=== PATIENT | male | born 1950 | race Caucasian/White ===

== ENCOUNTER 2019-03-25 17:29 | Inpatient (IN) | payer MEDICARE, MEDICAID ==
[~2019-03-25] VITALS: Ht 180.3 cm; Wt 61.4 kg
--- NOTE | 2019-03-25 17:40 | NUR ---
PT BIB EMS FOR PRODUCTIVE COUGH, WEAKNESS, FEVER FROM HOME. PT IS A&OX4, SLOW TO ANSWER QUESTIONS, FORGETFUL. HX OF TBI. VS STABLE. PT HAS PRODUCTIVE COUGH W YELLOW SPUTUM. WAITING FOR MD ORDERS. VS STABLE. NO SYMPTOMS OF DISTRESS
[2019-03-25] MEDS ORDERED: SODIUM CHLORIDE 0.9% 1,000ML IVBOLUS ONE (18:00)
[2019-03-25] MEDS ORDERED: SODIUM CHLORIDE FLUSH 10ML SYR IVF ONE (18:00)
--- NOTE | 2019-03-25 18:04 | NUR ---
CARDIAC MONITORED APPLIED. BLOOD CULUTRES IN PROCESS
[2019-03-25] MEDS ORDERED: ACETAMINOPHEN 650 MG SUPP ONE (18:07)
[2019-03-25] MEDS ORDERED: PIPERACILLIN/TAZO/PMX 3.375GM 50 ML ONE (18:10)
[2019-03-25 18:19] LABS: BASOPHILS % (AUTO) 0 % (0-1); EOSINOPHILS # (AUTO) 0.08 x10^3/uL (0-0.4); EOSINOPHILS % (AUTO) 1 % (1-7); LYMPHOCYTES # (AUTO) 0.64 x10^3/uL (1-3.4); LYMPHOCYTES % (AUTO) 7 % (22-44); MD NO; MEAN CORPUSCULAR HEMOGLOBIN 32.4 pg (27.5-34.5); MEAN CORPUSCULAR HGB CONC 33.2 g/dL (33.2-36.2); MEAN CORPUSCULAR VOLUME 97.7 fL (81-97); MEAN PLATELET VOLUME 8.9 fL (7.4-10.4); MONOCYTES # (AUTO) 0.75 x10^3/uL (0.2-0.8); MONOCYTES % (AUTO) 9 % (2-9); NEUTROPHILS # (AUTO) 7.16 x10^3/uL (1.8-6.8); NEUTROPHILS % (AUTO) 83 % (42-75); PLATELET COUNT 196 x10^3/uL (130-400); RED BLOOD COUNT 3.51 x10^6/uL (4.38-5.82); RED CELL DISTRIBUTION WIDTH 12.5 % (9.4-14.8)
[2019-03-25 18:27] LABS: INTERNATIONAL NORMALIZED RATIO 1.31 (0.93-1.1); PROTHROMBIN TIME 13.6 Seconds (9.6-11.5)
[2019-03-25 18:29] LABS: ALANINE AMINOTRANSFERASE 17 U/L (12-78); ALBUMIN 2.7 g/dL (3.4-5.0); ANION GAP 6 mmol/L (5-15); CHLORIDE 104 mmol/L (98-107); CREATININE 0.79 mg/dL (0.7-1.3)
[2019-03-25] MEDS ORDERED: ATENOLOL PO (18:29)
[2019-03-25] MEDS ORDERED: LOPERAMIDE PO (18:29)
[2019-03-25] MEDS ORDERED: GAPAPENTIN PO (18:29)
[2019-03-25] MEDS ORDERED: ALPRAZOLAM (18:29)
[2019-03-25] MEDS ORDERED: ZOLPIDEM PO (18:29)
[2019-03-25] MEDS ORDERED: PIPERACILLIN/TAZO/PMX 3.375GM 50 ML IV ONE (18:30)
[2019-03-25] MEDS ORDERED: ACETAMINOPHEN 650 MG SUPP PR ONE (18:30)
[2019-03-25 18:33] LABS: ALKALINE PHOSPHATASE 76 U/L (45-117); TOTAL PROTEIN 6.8 g/dL (6.4-8.2); TROPONIN I < 0.015 ng/mL (0.000-0.045)
--- NOTE | 2019-03-25 18:44 | NUR ---
EDUCATED PT FOR UA. RN ASSISTED W URINAL, PT UNABLE TO URINATE
--- NOTE | 2019-03-25 19:07 | NUR ---
PT WILLBE ADMITTED
--- NOTE | 2019-03-25 19:17 | NUR ---
DAUGHTER CALLED AND UPDATED [facility] [phone]
--- NOTE | 2019-03-25 19:23 | NUR ---
ABX IV WAS DONE VSS STABLE PT IS AAOX3 ABLE TO ANSWER FROM STAFFS
[2019-03-25] MEDS ORDERED: ACETAMINOPHEN 325 MG TABLET PO PRN (19:30)
[2019-03-25] MEDS ORDERED: CEFTRIAXONE PMX 2GM/50ML 50 ML IV SCH (19:30)
[2019-03-25 19:36] LABS: MICROSCOPIC NOT IND
[2019-03-25 19:39] LABS: CULTURE INDICATED? NO
--- NOTE | 2019-03-25 19:46 | NUR ---
GIVEN REPORT TO DIXIE GAMEZ PT WILL BE UP VSS STABLE
[2019-03-25 19:55] LABS: PREALBUMIN 13.8 mg/dL (20.0-40.0)
[2019-03-25 20:12] VITALS: BP 126/69
[2019-03-25] MEDS: HEPARIN 5,000 UNITS/ML, 1ML SQ SCH (21:30)
[2019-03-25] MEDS ORDERED: CARI3CAP PO (21:47)
[2019-03-25] MEDS ORDERED: FERR-51 PO (21:54)
[2019-03-25] MEDS ORDERED: Multivitamin PO (21:54)
[2019-03-25] MEDS ORDERED: HYDR-2443 PO (21:54)
[2019-03-25] MEDS ORDERED: ESCI20TA PO (21:54)
[2019-03-26 00:42] VITALS: BP 119/62
[2019-03-26 05:54] LABS: ALBUMIN 2.4 g/dL (3.4-5.0); ANION GAP 7 mmol/L (5-15); CALCIUM 8.1 mg/dL (8.5-10.1); CHLORIDE 107 mmol/L (98-107)
[2019-03-26 05:59] LABS: ALANINE AMINOTRANSFERASE 26 U/L (12-78); ALKALINE PHOSPHATASE 72 U/L (45-117); BILIRUBIN,TOTAL 0.7 mg/dL (0.2-1.0); CREATININE 0.81 mg/dL (0.7-1.3); TOTAL PROTEIN 5.8 g/dL (6.4-8.2)
[2019-03-26 06:30] VITALS: BP 94/60
[2019-03-26 06:43] LABS: MEAN CORPUSCULAR HEMOGLOBIN 32.8 pg (27.5-34.5); MEAN CORPUSCULAR HGB CONC 33.5 g/dL (33.2-36.2); MEAN CORPUSCULAR VOLUME 97.7 fL (81-97); MEAN PLATELET VOLUME 8.6 fL (7.4-10.4); PLATELET COUNT 173 x10^3/uL (130-400); RED CELL DISTRIBUTION WIDTH 12.6 % (9.4-14.8)
[2019-03-26 07:01] LABS: MD YES
[2019-03-26 07:15] LABS: BAND#(MANUAL) 0.51 x10^3/uL; BANDS%(MANUAL) 32 % (0-7); LYMPH#(MANUAL) 0.32 x10^3/uL (1-3.4); LYMPHS% (MANUAL) 20 % (22-44); MONOS#(MANUAL) 0.21 x10^3/uL (0.3-2.7); MONOS% (MANUAL) 13 % (2-9); SEG#(MANUAL) 0.56 x10^3/uL (1.8-6.8); SEGS% (MANUAL) 35 % (42-75)
[2019-03-26 07:16] LABS: <PLATELET ESTIMATE> ADEQUATE; <PLT MORPHOLOGY> NORMAL PLT MORPH; <RBC MORPHOLOGY> NORMAL; PMNS WITH VACUOLES 1+
[2019-03-26] MEDS ORDERED: AZITHROMYCIN 500 MG TABLET PO SCH (09:00)
[2019-03-26] MEDS: HEPARIN 5,000 UNITS/ML, 1ML SQ SCH ×2 (09:50→21:40)
[2019-03-26 10:03] VITALS: BP 109/69
[2019-03-26 10:14] VITALS: BP 97/61
[2019-03-26] MEDS: ALBUTEROL SULFATE 2.5 MG/3 ML NPPB SCH ×5 (10:30→22:59)
[2019-03-26] MEDS ORDERED: SODIUM CHLORIDE 0.9%, 250ML IVBOLUS ONE (11:00)
[2019-03-26] MEDS ORDERED: VANCOMYCIN PMX 1GM/200ML 200 ML IV ONE (11:00)
[2019-03-26] MEDS: SODIUM CHLORIDE 0.9% 1,000 ML IV SCH (11:00)
[2019-03-26] MEDS ORDERED: VANCOMYCIN PER PHARMACY MC PRN (11:00)
[2019-03-26] MEDS ORDERED: PHARMACOKINETIC MONITORING MC PRN (11:00)
[2019-03-26 12:49] LABS: TROPONIN I < 0.015 ng/mL (0.000-0.045)
[2019-03-26] MEDS: VANCOMYCIN 1,100 MG in SODIUM CHLORIDE 0.9% 250 ML IV SCH (13:30)
[2019-03-26] MEDS: PIPERACILLIN/TAZO/PMX 3.375GM 50 ML IV SCH ×3 (15:25→22:34)
[2019-03-26] MEDS ORDERED: SODIUM CHLORIDE 0.9% 1,000ML IVBOLUS ONE ×2 (21:30→23:30)
[2019-03-27] MEDS: SODIUM CHLORIDE 0.9% 1,000 ML IV SCH ×2 (00:20→15:12)
[2019-03-27] MEDS ORDERED: NOREPINEPHRINE 4 MG in SODIUM CHLORIDE 0.9% 246 ML IV PRN (01:30)
[2019-03-27] MEDS: ALBUTEROL SULFATE 2.5 MG/3 ML NPPB SCH ×6 (02:44→22:55)
[2019-03-27 04:26] LABS: MEAN CORPUSCULAR HEMOGLOBIN 32.5 pg (27.5-34.5); MEAN CORPUSCULAR HGB CONC 33.5 g/dL (33.2-36.2); MEAN PLATELET VOLUME 8.9 fL (7.4-10.4); PLATELET COUNT 187 x10^3/uL (130-400); RED BLOOD COUNT 3.23 x10^6/uL (4.38-5.82); RED CELL DISTRIBUTION WIDTH 12.9 % (9.4-14.8)
[2019-03-27 04:37] LABS: ALANINE AMINOTRANSFERASE 19 U/L (12-78); ALBUMIN 1.9 g/dL (3.4-5.0); ANION GAP 6 mmol/L (5-15); CALCIUM 7.6 mg/dL (8.5-10.1); CHLORIDE 111 mmol/L (98-107)
[2019-03-27 05:03] LABS: ALKALINE PHOSPHATASE 62 U/L (45-117); BILIRUBIN,TOTAL 0.9 mg/dL (0.2-1.0); TOTAL PROTEIN 5.3 g/dL (6.4-8.2)
[2019-03-27] MEDS: PIPERACILLIN/TAZO/PMX 3.375GM 50 ML IV SCH ×4 (05:06→22:36)
[2019-03-27 06:34] LABS: MD YES
[2019-03-27 06:39] LABS: BAND#(MANUAL) 0.99 x10^3/uL; BANDS%(MANUAL) 21 % (0-7); EOS#(MANUAL) 0.09 x10^3/uL (0.0-0.4); EOS% (MANUAL) 2 % (1-7); LYMPH#(MANUAL) 1.08 x10^3/uL (1-3.4); LYMPHS% (MANUAL) 23 % (22-44); MONOS#(MANUAL) 0.09 x10^3/uL (0.3-2.7); MONOS% (MANUAL) 2 % (2-9); SEG#(MANUAL) 2.44 x10^3/uL (1.8-6.8); SEGS% (MANUAL) 52 % (42-75)
[2019-03-27 06:42] LABS: <PLATELET ESTIMATE> ADEQUATE; <PLT MORPHOLOGY> NORMAL PLT MORPH; <RBC MORPHOLOGY> NORMAL
[2019-03-27] MEDS ORDERED: POTASSIUM CHLORIDE 20 MEQ TAB.ER.PRT PO ONE (07:30)
[2019-03-27] MEDS ORDERED: MAGNESIUM SULFATE PMX 2GM/50ML 50 ML IV ONE (07:30)
[2019-03-27] MEDS: HEPARIN 5,000 UNITS/ML, 1ML SQ SCH ×2 (09:46→21:30)
--- NOTE | 2019-03-27 13:06 | NUR ---
TF goal: Jevity 1.2 @ 60 ml/hour (please advance slowly, pt is at risk for refeeding syndrome, monitor and replace electrolytes prn
[2019-03-27] MEDS: VANCOMYCIN 1,100 MG in SODIUM CHLORIDE 0.9% 250 ML IV SCH (13:43)
[2019-03-27] MEDS ORDERED: POTASSIUM CHLORIDE 10% 40 MEQ/30 ML UDC ONE (15:21)
--- NOTE | 2019-03-27 15:27 | NUR ---
PLASTIC FINISHER RECOMMEND: NPO with alternative means of nutrition and hydration -Single ice chips with staff only -Aggressive oral care Addendum: 03/27/19 at 1527 by GEORGE WISE Amended: Links added.
[2019-03-27] MEDS ORDERED: POTASSIUM CHLORIDE 10% 40 MEQ/30 ML UDC PO ONE (15:30)
[2019-03-27] MEDS ORDERED: ATROPINE SYRINGE 0.1 MG/ML, 10ML IVPush PRN (16:30)
[2019-03-28] MEDS: SODIUM CHLORIDE 0.9% 1,000 ML IV SCH ×2 (02:45→18:26)
[2019-03-28] MEDS: PIPERACILLIN/TAZO/PMX 3.375GM 50 ML IV SCH ×4 (04:30→22:49)
[2019-03-28] MEDS ORDERED: ALBUTEROL SULFATE 2.5 MG/3 ML NPPB SCH (07:00)
[2019-03-28] MEDS: HEPARIN 5,000 UNITS/ML, 1ML SQ SCH ×2 (09:30→21:29)
[2019-03-28] MEDS ORDERED: ALBUTEROL SULFATE 2.5 MG/3 ML NPPB PRN (10:00)
[2019-03-28] MEDS: VANCOMYCIN 1,100 MG in SODIUM CHLORIDE 0.9% 250 ML IV SCH (11:51)
[2019-03-28 15:26] VITALS: BP 130/72
[2019-03-28 20:44] VITALS: BP 137/78
[2019-03-28] MEDS: ATROPINE SYRINGE 0.1 MG/ML, 10ML IVPush PRN (22:04)
[2019-03-29 01:26] VITALS: BP 146/78
[2019-03-29] MEDS: ATROPINE SYRINGE 0.1 MG/ML, 10ML IVPush PRN (02:18)
[2019-03-29] MEDS: PIPERACILLIN/TAZO/PMX 3.375GM 50 ML IV SCH ×4 (05:01→22:33)
[2019-03-29 05:12] LABS: BASOPHILS # (AUTO) 0.01 x10^3/uL (0-0.1); BASOPHILS % (AUTO) 0 % (0-1); EOSINOPHILS # (AUTO) 0.12 x10^3/uL (0-0.4); EOSINOPHILS % (AUTO) 4 % (1-7); LYMPHOCYTES # (AUTO) 0.84 x10^3/uL (1-3.4); LYMPHOCYTES % (AUTO) 26 % (22-44); MD NO; MEAN CORPUSCULAR HEMOGLOBIN 31.8 pg (27.5-34.5); MEAN CORPUSCULAR HGB CONC 32.8 g/dL (33.2-36.2); MEAN CORPUSCULAR VOLUME 97.1 fL (81-97); MEAN PLATELET VOLUME 8.8 fL (7.4-10.4); MONOCYTES # (AUTO) 0.21 x10^3/uL (0.2-0.8); MONOCYTES % (AUTO) 6 % (2-9); NEUTROPHILS % (AUTO) 64 % (42-75); PLATELET COUNT 209 x10^3/uL (130-400); RED BLOOD COUNT 3.66 x10^6/uL (4.38-5.82); RED CELL DISTRIBUTION WIDTH 12.9 % (9.4-14.8)
[2019-03-29 05:13] LABS: ANION GAP 6 mmol/L (5-15); CHLORIDE 110 mmol/L (98-107); CREATININE 0.49 mg/dL (0.7-1.3)
[2019-03-29 06:35] VITALS: BP 125/69
[2019-03-29] MEDS: SODIUM CHLORIDE 0.9% 1,000 ML IV SCH ×2 (09:05→22:33)
[2019-03-29] MEDS: HEPARIN 5,000 UNITS/ML, 1ML SQ SCH ×2 (09:14→20:58)
[2019-03-29 12:55] VITALS: BP 98/65
[2019-03-29 19:17] VITALS: BP 98/52
[2019-03-29] MEDS: QUETIAPINE 100MG TABLET PO SCH (20:59)
[2019-03-30] MEDS: SODIUM CHLORIDE 0.9% 1,000 ML IV SCH (01:45)
[2019-03-30 01:50] VITALS: BP 102/66
[2019-03-30] MEDS: PIPERACILLIN/TAZO/PMX 3.375GM 50 ML IV SCH (04:55)
[2019-03-30] MEDS: HEPARIN 5,000 UNITS/ML, 1ML SQ SCH ×2 (06:20→20:57)
[2019-03-30 06:30] VITALS: BP 110/71
[2019-03-30 08:12] LABS: BASOPHILS # (AUTO) 0.02 x10^3/uL (0-0.1); BASOPHILS % (AUTO) 1 % (0-1); EOSINOPHILS # (AUTO) 0.08 x10^3/uL (0-0.4); EOSINOPHILS % (AUTO) 3 % (1-7); LYMPHOCYTES # (AUTO) 0.92 x10^3/uL (1-3.4); LYMPHOCYTES % (AUTO) 31 % (22-44); MD NO; MEAN CORPUSCULAR HEMOGLOBIN 31.8 pg (27.5-34.5); MEAN CORPUSCULAR HGB CONC 33.4 g/dL (33.2-36.2); MEAN CORPUSCULAR VOLUME 95.1 fL (81-97); MEAN PLATELET VOLUME 8.1 fL (7.4-10.4); MONOCYTES # (AUTO) 0.34 x10^3/uL (0.2-0.8); MONOCYTES % (AUTO) 12 % (2-9); NEUTROPHILS # (AUTO) 1.59 x10^3/uL (1.8-6.8); NEUTROPHILS % (AUTO) 54 % (42-75); PLATELET COUNT 249 x10^3/uL (130-400); RED BLOOD COUNT 3.85 x10^6/uL (4.38-5.82)
[2019-03-30 08:24] LABS: ANION GAP 5 mmol/L (5-15); CALCIUM 7.9 mg/dL (8.5-10.1); CHLORIDE 109 mmol/L (98-107); CREATININE 0.78 mg/dL (0.7-1.3)
[2019-03-30 08:36] VITALS: BP 116/69
[2019-03-30] MEDS ORDERED: FENTANYL PF 250 MCG/5ML ONE (13:16)
[2019-03-30 13:19] VITALS: BP 106/65
[2019-03-30] MEDS ORDERED: CEFAZOLIN 1,000 MG ONE (13:21)
[2019-03-30] MEDS ORDERED: GLYCOPYRROLATE 0.2MG/1ML, 5ML ONE (13:21)
[2019-03-30] MEDS ORDERED: ROCURONIUM 10MG/ML,5ML ONE (13:21)
[2019-03-30] MEDS ORDERED: PROPOFOL 10 MG/ML, 20ML ONE (13:21)
[2019-03-30] MEDS ORDERED: NEOSTIGMINE 1 MG/ML, 10ML ONE (13:21)
[2019-03-30] MEDS ORDERED: SODIUM CHLORIDE 0.9%, 500ML IVBOLUS ONE (18:00)
[2019-03-30 18:03] LABS: MICROSCOPIC INDICATED
[2019-03-30 18:19] LABS: CULTURE INDICATED? NO
[2019-03-30 19:40] VITALS: BP 114/72
[2019-03-30] MEDS: QUETIAPINE 100MG TABLET PO SCH (20:57)
[2019-03-31 01:14] VITALS: BP 108/60
[2019-03-31] MEDS: SODIUM CHLORIDE 0.9% 1,000 ML IV SCH (02:01)
[2019-03-31 06:30] VITALS: BP 116/67
[2019-03-31] MEDS ORDERED: POTASSIUM CHLORIDE 10% 40 MEQ/30 ML UDC PO/NG ONE (07:00)
[2019-03-31] MEDS: HEPARIN 5,000 UNITS/ML, 1ML SQ SCH ×2 (09:15→21:51)
[2019-03-31] MEDS ORDERED: QUET100T PO/NG (10:53)
[2019-03-31 12:39] VITALS: BP 125/73
[2019-03-31] MEDS ORDERED: POTASSIUM CHLORIDE 10% 20 MEQ/15 ML UDC PO ONE (15:00)
[2019-03-31 19:50] VITALS: BP 156/76
[2019-03-31] MEDS ORDERED: QUETIAPINE 25MG TABLET ONE (21:33)
[2019-03-31] MEDS: QUETIAPINE 25MG TABLET PO SCH (21:55)
[2019-04-01 00:27] VITALS: BP 131/74
[2019-04-01 07:53] VITALS: BP 120/70
[2019-04-01] MEDS: HEPARIN 5,000 UNITS/ML, 1ML SQ SCH ×2 (09:05→22:15)
[2019-04-01 14:08] VITALS: BP 125/74
[2019-04-01 18:40] VITALS: BP 133/74
[2019-04-01] MEDS: QUETIAPINE 25MG TABLET PO SCH (22:15)
[2019-04-02 01:22] VITALS: BP 124/73
[2019-04-02] MEDS ORDERED: MAGNESIUM SULFATE PMX 2GM/50ML 50 ML IV ONE (07:00)
[2019-04-02] MEDS ORDERED: POTASSIUM CHLORIDE 40 MEQ in SODIUM CHLORIDE 0.9% 500 ML IV ONE (07:00)
[2019-04-02 07:15] VITALS: BP 146/82
[2019-04-02 08:09] LABS: BASOPHILS # (AUTO) 0.02 x10^3/uL (0-0.1); BASOPHILS % (AUTO) 1 % (0-1); EOSINOPHILS # (AUTO) 0.09 x10^3/uL (0-0.4); EOSINOPHILS % (AUTO) 3 % (1-7); LYMPHOCYTES # (AUTO) 1.25 x10^3/uL (1-3.4); LYMPHOCYTES % (AUTO) 38 % (22-44); MD NO; MEAN CORPUSCULAR HEMOGLOBIN 31.7 pg (27.5-34.5); MEAN CORPUSCULAR HGB CONC 33.4 g/dL (33.2-36.2); MEAN CORPUSCULAR VOLUME 95.1 fL (81-97); MEAN PLATELET VOLUME 8.5 fL (7.4-10.4); MONOCYTES # (AUTO) 0.48 x10^3/uL (0.2-0.8); MONOCYTES % (AUTO) 15 % (2-9); NEUTROPHILS # (AUTO) 1.46 x10^3/uL (1.8-6.8); NEUTROPHILS % (AUTO) 44 % (42-75); PLATELET COUNT 282 x10^3/uL (130-400); RED BLOOD COUNT 3.45 x10^6/uL (4.38-5.82); RED CELL DISTRIBUTION WIDTH 12.8 % (9.4-14.8)
[2019-04-02 08:15] LABS: ANION GAP 6 mmol/L (5-15); CALCIUM 8.1 mg/dL (8.5-10.1); CHLORIDE 106 mmol/L (98-107)
[2019-04-02 08:17] LABS: CREATININE 0.58 mg/dL (0.7-1.3)
[2019-04-02] MEDS: HEPARIN 5,000 UNITS/ML, 1ML SQ SCH (08:48)
[2019-04-02] MEDS ORDERED: QUET25TA7 PO (09:43)
[2019-04-02] MEDS ORDERED: ACET325T26 PO (09:43)
== END 2019-04-02 13:20 | DRG 871 ==
LOC: ED 19:29 → EDIP 19:50 → 3N 20:20 → 5SO 03-26 10:47 → 3N 03-26 10:48 → CCU 03-26 10:52 → 5SO 03-28 15:19
PROVIDERS: ADMIT Family Medicine; ATTEND Internal Medicine
DX: A41.9 Sepsis, unspecified organism (principal); J96.01 Acute respiratory failure with hypoxia; E43 Unspecified severe protein-calorie malnutrition; G92 Toxic encephalopathy; R65.21 Severe sepsis with septic shock; J18.0 Bronchopneumonia, unspecified organism; Z68.1 Body mass index [BMI] 19.9 or less, adult; I10 Essential (primary) hypertension; D50.9 Iron deficiency anemia, unspecified; D72.819 Decreased white blood cell count, unspecified; R13.10 Dysphagia, unspecified; F31.9 Bipolar disorder, unspecified; F20.9 Schizophrenia, unspecified; F41.9 Anxiety disorder, unspecified; G62.9 Polyneuropathy, unspecified; E87.6 Hypokalemia; R00.1 Bradycardia, unspecified; K21.9 Gastro-esophageal reflux disease without esophagitis; I45.10 Unspecified right bundle-branch block; Z87.820 Personal history of traumatic brain injury; Z86.19 Personal history of other infectious and parasitic diseases; Z87.81 Personal history of (healed) traumatic fracture; Z87.828 Personal history of other (healed) physical injury and trauma; Z87.01 Personal history of pneumonia (recurrent); Z79.899 Other long term (current) drug therapy
CPT/HCPCS: 36415; 36600; 71045; 74018; 74177; 74230; 80048; 80053; 80202; 81001; 81003; 82330; 82533; 82607; 82803; 83605; 83735; 83880; 84100; 84134; 84145; 84443; 84484; 85025; 85610; 85730; 87040; 87046; 87081; 93005; 93306; 94640; 96374; G0378; J0461; J0690; J0696; J1644; J2543; J2704; J2710; J3010; J3370; J3480; J7613; J3475; J7030; J7040; J7050

== ENCOUNTER 2019-07-03 12:34 | Emergency (ER) | payer MEDICARE, MEDICAID ==
[~2019-07-03] VITALS: Ht 180.3 cm; Wt 68.2 kg
[~2019-07-03 12:34] MED LIST: ACET325T26 PO; ALPRAZOLAM; ATENOLOL PO; CARI3CAP PO; ESCI20TA PO; FERR-51 PO; GAPAPENTIN PO; HYDR-2443 PO; LOPERAMIDE PO; Multivitamin PO; QUET100T PO/NG; QUET25TA7 PO; ZOLPIDEM PO
[2019-07-03] MEDS: SODIUM CHLORIDE FLUSH 10ML SYR IVF ONE (13:24)
[2019-07-03] MEDS: SODIUM CHLORIDE 0.9% 1,000ML IVBOLUS ONE (13:45)
[2019-07-03 13:51] LABS: BASOPHILS # (AUTO) 0.02 x10^3/uL (0-0.1); BASOPHILS % (AUTO) 0 % (0-1); EOSINOPHILS % (AUTO) 2 % (1-7); LYMPHOCYTES # (AUTO) 1.21 x10^3/uL (1-3.4); LYMPHOCYTES % (AUTO) 29 % (22-44); MD NO; MEAN CORPUSCULAR HEMOGLOBIN 31.2 pg (27.5-34.5); MEAN CORPUSCULAR HGB CONC 32.4 g/dL (33.2-36.2); MEAN CORPUSCULAR VOLUME 96.1 fL (81-97); MEAN PLATELET VOLUME 9.6 fL (7.4-10.4); MONOCYTES # (AUTO) 0.63 x10^3/uL (0.2-0.8); MONOCYTES % (AUTO) 15 % (2-9); NEUTROPHILS # (AUTO) 2.23 x10^3/uL (1.8-6.8); NEUTROPHILS % (AUTO) 53 % (42-75); PLATELET COUNT 169 x10^3/uL (130-400); RED CELL DISTRIBUTION WIDTH 13.3 % (9.4-14.8)
[2019-07-03 13:57] LABS: ALBUMIN 2.7 g/dL (3.4-5.0); CALCIUM 8.2 mg/dL (8.5-10.1); CHLORIDE 105 mmol/L (98-107)
[2019-07-03 14:01] LABS: ALANINE AMINOTRANSFERASE 17 U/L (12-78); ALKALINE PHOSPHATASE 71 U/L (45-117); BILIRUBIN,TOTAL 0.9 mg/dL (0.2-1.0); CREATININE 0.96 mg/dL (0.7-1.3); TOTAL PROTEIN 6.6 g/dL (6.4-8.2)
[2019-07-03 14:08] LABS: ANION GAP 4 mmol/L (5-15)
[2019-07-03 14:41] LABS: MICROSCOPIC NOT IND
[2019-07-03 14:50] LABS: CULTURE INDICATED? NO
--- NOTE | 2019-07-03 16:53 | NUR ---
Patient unaware of home address or phone numbers of contact. EMR demographics and contact do not list any information. Spoke to Erica at [facility] who provided address [address] [place] [address] and phone number [phone]. Called phone number and spoke to pt's daughter Edwige. Edwige to picket [employer] patient in "20 minutes" for discharge.
[2019-07-03 16:54] VITALS: BP 114/66
--- NOTE | 2019-07-03 17:13 | NUR ---
Patient given discharge instructions and they have confirmed that they understand the instructions. Patient pushed in personal wheelchair. Pt left with d/c paperwork and all personal belongings. NADN. No needs expressed.
== END 2019-07-03 17:16 | disposition home or self-care (01) ==
LOC: ED 17:10
DX: R10.84 Generalized abdominal pain (principal); I10 Essential (primary) hypertension; R19.7 Diarrhea, unspecified
CPT/HCPCS: 36415; 74022; 80053; 81003; 83690; 85025; 93005; 96360; 99284; J7030